=== PATIENT | male | born 1970 | race Caucasian/White ===

== ENCOUNTER 2017-03-02 12:10 | Emergency (ER) | payer SELFPAY ==
[~2017-03-02] VITALS: Ht 172.7 cm; Wt 103.0 kg
[~2017-03-02 12:10] MED LIST: TOBRA.3%O LEFT EYE
[2017-03-02 12:37] VITALS: BP 143/94; PULSE 80; RESP 18; TEMP 98.8; O2SAT 99
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
--- NOTE | 2017-03-02 14:19 | RADRPT ---
EXAM DATE/TIME: 03/02/2017 13:37 [facility] COMPARISON: No previous studies available for comparison. INDICATIONS : Short of breath MEDICAL HISTORY : None. SURGICAL HISTORY : None. ENCOUNTER: Initial ACUITY: 1 month PAIN SCORE: 0/10 LOCATION: Bilateral chest FINDINGS: A single view of the chest demonstrates the lungs to be symmetrically aerated without evidence of mas s, infiltrate or effusion. The cardiomediastinal contours are unremarkable. Osseous structures are intact. CONCLUSION: Normal examination. Calvin Brian Jr., MD on March 02, 2017 at 14:17 Board Certified Radiologist. This report was verified electronically.
== END 2017-03-02 14:38 | disposition home or self-care (01) ==
LOC: PHEFT 12:10
DX: B34.9 Viral infection, unspecified (principal); J02.9 Acute pharyngitis, unspecified
CPT/HCPCS: 71010; 99283

== ENCOUNTER 2017-03-04 01:19 | Emergency (ER) | payer SELFPAY ==
[~2017-03-04] VITALS: Ht 175.3 cm; Wt 102.5 kg
[2017-03-04 01:24] VITALS: BP 145/91; PULSE 78; RESP 16; TEMP 98.6; O2SAT 99
--- NOTE | 2017-03-04 02:23 | PD ---
HPI Chief Complaint: Skin Problem Time Seen by Provider: 02:08 Travel History International Travel<30 days: No Contact w/Intl Traveler<30days: No Traveled to known affect area: No History of Present Illness HPI The patient is a 46-year-old male who feels a burning below his tongue and around the sub lingual glands for 2 days. He came in several days ago and was diagnosed as a viral upper respiratory infection. They did not do a throat culture. He states that he had white spots underneath his tongue but he scraped them off. He also gargled with vinegar and salt water. He denies any fever. He does not have any immune disorder and is not on any medications. He denies any cough or fever. [facility] Past Medical History Immunizations Current: Yes ?: Not Past Surgical History Tonsillectomy: Yes (AGE 12) Social History Alcohol Use: Yes (SOCIALLY) Tobacco Use: No Substance Use: No Allergies-Medications (Allergen,Severity, Reaction): Coded Allergies: No Known Allergies (Unverified , 03/02/17) Reported Meds & Prescriptions Reported Meds & Active Scripts Active Nystatin Liq 100,000 unit/ml Susp 5 Ml SWISH-SWAL QID 10 Days Review of Systems Except as stated in HPI: all other systems reviewed are Neg Physical Exam Narrative GENERAL: Well-nourished, alert and oriented, obese patient in minimal apparent distress with his mouth pain. His vital signs show blood pressure 145/91 but otherwise normal. SKIN: Focused skin assessment warm/dry. HEAD: Normocephalic. EYES: No scleral icterus. No injection or drainage. NECK: Supple, trachea midline. No JVD or lymphadenopathy. There is no meningismus present. CARDIOVASCULAR: Regular rate and rhythm without murmurs, gallops, or rubs. RESPIRATORY: Breath sounds equal bilaterally. No accessory muscle use. GASTROINTESTINAL: Abdomen soft, non-tender, nondistended. MUSCULOSKELETAL: No cyanosis, or edema. BACK: Nontender without obvious deformity. No CVA tenderness. ENT: The throat is clear but below the tongue the tissues are erythematous and swollen. No white spots are seen at this time. No exudate is noted. There is no abscess in the throat. Data Data Last Documented VS Vital Signs Date Time Temp Pulse Resp B/P (MAP) Pulse Ox O2 Delivery O2 Flow Rate FiO2 03/04/17 01:24 98.6 78 16 145/91 (109) 99 Orders Orders Group A Rapid Strep Screen (03/04/17 02:18) Strep Culture (Group A) (03/04/17 02:10) MDM Medical Decision Making Medical Screen Exam Complete: Yes Emergency Medical Condition: Yes Medical Record Reviewed: Yes Interpretation(s) The strep screen is negative for group A strep antigen. Differential Diagnosis Viral pharyngitis, strep pharyngitis, thrush Narrative Course The patient probably has a viral pharyngitis but thrush is possible. Diagnosis Primary Impression: Pharyngitis Additional Instructions: Use the nystatin 5 cc 4 times daily, swish and swallow for thrush. If this is a virus there is no specific antibiotic for that. Follow-up with her primary care physician next week. Med/Other Pt SpecificInfo: Prescription(s) given Scripts Nystatin Liq (Nystatin Liq) 100,000 unit/ml Susp 5 ML SWISH-SWAL QID for Infection for 10 Days, ML 0 Refills Prov: Guillermo Mckeon MD 03/04/17 Disposition: 01 DISCHARGE HOME Condition: Stable Guillermo Mckeon MD Mar 04, 2017 02:23
[2017-03-04] MEDS ORDERED: NYST1000 SWISH-SWAL (02:59)
[2017-03-04 03:31] VITALS: BP 165/88
== END 2017-03-04 03:33 | disposition home or self-care (01) ==
LOC: PHED 01:19
DX: J02.9 Acute pharyngitis, unspecified (principal)
CPT/HCPCS: 87081; 87880; 99283